=== PATIENT | male | born 1970 | race Caucasian/White ===

== ENCOUNTER 2018-09-29 19:03 | Emergency (ER) | payer BC, OTHER ==
[~2018-09-29] VITALS: Ht 175.3 cm; Wt 77.1 kg
[~2018-09-29 19:03] MED LIST: CLOM75CA2 PO; TEMA30CA5 PO
[2018-09-29] MEDS ORDERED: OXYCODONE/APAP 5-325 MG TABLET PO ONE (19:45)
[2018-09-29] MEDS ORDERED: ONDANSETRON ODT 4 MG TAB.RAPDIS SL ONE (19:45)
[2018-09-29] MEDS ORDERED: ONDANSETRON ODT 4 MG TAB.RAPDIS ONE (19:52)
[2018-09-29] MEDS ORDERED: OXYCODONE/APAP 5-325 MG TABLET ONE (19:53)
--- NOTE | 2018-09-29 20:04 | NUR ---
Patient discharged to home in stable conditon. Patient's will be driving patient home. Written and verbal after care instructions given. Patient verbalizes understanding of instructions. Patient OK for discharge per Dr. Higgins. Able to walk out of ED with steady gait.
[2018-09-29 20:06] VITALS: BP 157/97
== END 2018-09-29 20:09 | disposition home or self-care (01) ==
LOC: ER 19:05
DX: S00.512A Abrasion of oral cavity, initial encounter (principal); G40.909 Epilepsy, unspecified, not intractable, without status epilepticus; Z79.899 Other long term (current) drug therapy; X58.XXXA Exposure to other specified factors, initial encounter; Y93.89 Activity, other specified; Y92.89 Other specified places as the place of occurrence of the external cause; Y99.8 Other external cause status
CPT/HCPCS: A4663; Q0162